=== PATIENT | female | born 1985 | race Caucasian/White ===

== ENCOUNTER 2024-11-20 13:59 | Inpatient (IN) | payer BC ==
[2024-11-20] MEDS ORDERED: Sodium Chloride 0.9% 10 ML Syringe FLUSH PRN (14:21)
[2024-11-20] MEDS: levETIRAcetam 500 MG/5 ML SDV IVPUSH ONE (14:56)
[2024-11-20 15:06] LABS: BASOPHILS ABSOLUTE AUTO 0.1 K/mm3 (0.0-0.2); BASOPHILS PERCENT AUTO 0.3 % (0.0-1.0); EOSINOPHILS ABSOLUTE AUTO 0.0 K/mm3 (0.0-0.4); EOSINOPHILS PERCENT AUTO 0.2 % (0.0-6.0); IMMATURE GRAN ABSOLUTE AUTO 0.08 K/mm3 (0.00-0.05); IMMATURE GRAN PERCENT AUTO 0.4 % (0.0-0.4); LYMPHOCYTES ABSOLUTE AUTO 3.0 K/mm3 (1.0-4.8); LYMPHOCYTES PERCENT AUTO 15.6 % (24.0-44.0); MEAN PLATELET VOLUME 9.9 fl (9.4-12.3); MONOCYTES ABSOLUTE AUTO 1.0 K/mm3 (0.0-0.8); MONOCYTES PERCENT AUTO 5.0 % (0.0-8.0); NEUTROPHILS ABSOLUTE AUTO 15.1 K/mm3 (1.8-7.7); NEUTROPHILS PERCENT AUTO 78.5 % (41.0-71.0); NRBC ABSOLUTE 0.00 (0.00-0.02); NRBC PERCENT 0.0 % (0.0-0.2); PLATELET COUNT,PLT 319 K/mm3 (150-400); RED BLOOD CELL COUNT 5.01 M/mm3 (4.10-5.30); WHITE BLOOD CELL COUNT,WBC 19.16 K/mm3 (3.9-11.3)
[2024-11-20 15:30] LABS: LACTIC ACID 2.0 mmol/L (0.4-2.0)
[2024-11-20 15:31] LABS: A/G RATIO 1.1 (1-2); ALANINE AMINOTRANSFERASE,ALT 19 U/L (14-59); ASPARTATE AMNIOTRANSFERASE,AST 20 U/L (15-37); BILIRUBIN TOTAL 0.4 mg/dL (0.2-1.0); BLOOD UREA NITROGEN,BUN 12 mg/dL (7-18); CARBON DIOXIDE,CO2 28 mEq/L (21-32); CHLORIDE,CL 103 mEq/L (98-107); CREATININE 1.1 mg/dL (0.55-1.02); ESTIMATED GFR 66 mL/min (>60); ETHANOL BLOOD MEDICAL 0.00 gm% (0.00); GLUCOSE RANDOM 117 mg/dL (70-99); POTASSIUM,K 3.7 mEq/L (3.5-5.1); PROTEIN TOTAL,TP 8.0 g/dl (6.4-8.2); SODIUM,NA 142 mEq/L (136-145); TROPONIN I HIGH SENSITIVITY < 4 pg/mL (<=51)
[2024-11-20] MEDS: Magnesium Sulf/Wat 4 GM/50 mL 4 GM in Premix Bag 1 BAG IV ONE (16:19)
[2024-11-20] MEDS ORDERED: LORazepam 2 MG/ML SDV IVPUSH PRN (17:36)
[2024-11-20] MEDS ORDERED: Naloxone 0.4 MG/ML SDV IVPUSH PRN (17:38)
[2024-11-20] MEDS ORDERED: Sennosides/Docusate Sodium 50-8.6 MG Tab PO PRN (17:38)
[2024-11-20 18:54] LABS: APPEARANCE,URINE CLEAR (Clear); GLUCOSE,URINE NEGATIVE (Negative); OCCULT BLOOD,URINE NEGATIVE (Negative)
[2024-11-20 19:03] LABS: BUPRENORPHINE SCREEN,URINE NEGATIVE (CUTOFF=10); METHADONE SCREEN, URINE NEGATIVE (CUTOFF=200); METHAMPHETAMINES SCREEN, URINE NEGATIVE (CUTOFF=500); OXYCODONE SCREEN,URINE NEGATIVE (CUT0FF=100); THC SCREEN,URINE 20 NG/ML PRESUMPTIVE POSITIVE (CUTOFF=50)
[2024-11-20 19:06] LABS: AMPHETAMINES SCREEN, URINE NEGATIVE (CUTOFF=500)
[2024-11-20] MEDS: LORazepam 2 MG/ML SDV IV PRN (20:26)
[2024-11-21 05:44] LABS: BASOPHILS ABSOLUTE AUTO 0.0 K/mm3 (0.0-0.2); BASOPHILS PERCENT AUTO 0.1 % (0.0-1.0); EOSINOPHILS ABSOLUTE AUTO 0.0 K/mm3 (0.0-0.4); EOSINOPHILS PERCENT AUTO 0.0 % (0.0-6.0); IMMATURE GRAN ABSOLUTE AUTO 0.09 K/mm3 (0.00-0.05); IMMATURE GRAN PERCENT AUTO 0.5 % (0.0-0.4); LYMPHOCYTES ABSOLUTE AUTO 1.3 K/mm3 (1.0-4.8); LYMPHOCYTES PERCENT AUTO 7.6 % (24.0-44.0); MEAN PLATELET VOLUME 9.9 fl (9.4-12.3); MONOCYTES ABSOLUTE AUTO 0.7 K/mm3 (0.0-0.8); MONOCYTES PERCENT AUTO 3.9 % (0.0-8.0); NEUTROPHILS ABSOLUTE AUTO 15.1 K/mm3 (1.8-7.7); NEUTROPHILS PERCENT AUTO 87.9 % (41.0-71.0); NRBC ABSOLUTE 0.00 (0.00-0.02); NRBC PERCENT 0.0 % (0.0-0.2); PLATELET COUNT,PLT 306 K/mm3 (150-400); RED BLOOD CELL COUNT 4.32 M/mm3 (4.10-5.30); WHITE BLOOD CELL COUNT,WBC 17.19 K/mm3 (3.9-11.3)
[2024-11-21 06:00] LABS: A/G RATIO 1.0 (1-2); ALANINE AMINOTRANSFERASE,ALT 16.0 U/L (14-59); ASPARTATE AMNIOTRANSFERASE,AST 14.0 U/L (15-37); BILIRUBIN TOTAL 0.6 mg/dL (0.2-1.0); BLOOD UREA NITROGEN,BUN 7.0 mg/dL (7-18); CARBON DIOXIDE,CO2 27.0 mEq/L (21-32); CHLORIDE,CL 100.0 mEq/L (98-107); CREATININE 0.9 mg/dL (0.55-1.02); EST CRCL DRUG DOSING (CG) 70.8 mL/min; ESTIMATED GFR 84.0 mL/min (>60); GLUCOSE RANDOM 129.0 mg/dL (70-99); PHOSPHORUS 3.4 mg/dL (2.6-4.7); POTASSIUM,K 3.9 mEq/L (3.5-5.1); PROTEIN TOTAL,TP 7.1 g/dl (6.4-8.2); SODIUM,NA 135.0 mEq/L (136-145)
[2024-11-21] MEDS ORDERED: Ondansetron 4 MG/2 ML SDV IVPUSH PRN (10:20)
[2024-11-21] MEDS: Sodium Chloride 0.9% 10 ML Syringe FLUSH SCH (12:06)
[2024-11-21] MEDS: Gadobenate Dimeglumine 529 MG/ML 15 ML SDV IVPUSH ONE (12:06)
[2024-11-21] MEDS: Ondansetron 4 MG Tab.DIS PO PRN (12:52)
[2024-11-22 09:46] LABS: KEPPRA 27.0 ug/mL (10.0-40.0)
== END 2024-11-21 14:59 | disposition home or self-care (01) | DRG 53 ==
LOC: JD.ED 13:59 → JD.MS 16:09
PROVIDERS: ADMIT Student in an Organized Health Care Education/Training Program; ATTEND Student in an Organized Health Care Education/Training Program
DX: R56.9 Unspecified convulsions (principal); R94.31 Abnormal electrocardiogram [ECG] [EKG]; J98.11 Atelectasis; D72.829 Elevated white blood cell count, unspecified; E83.42 Hypomagnesemia; Z88.2 Allergy status to sulfonamides; Z79.899 Other long term (current) drug therapy; Z98.890 Other specified postprocedural states
CPT/HCPCS: 36415; 70450; 70450-26; 70553; 70553-26; 71045; 71045-26; 80053; 80177; 80306; 80307; 81003; 83605; 83690; 83735; 84100; 84484; 84703; 85025; 86140; 87040; 93005; 93010; 94761; 99285; A9270-GY; A9577; J0692; J1953; J2060; J3475; J3480; J7030

== ENCOUNTER 2024-11-23 10:41 | Emergency (ER) | payer BC ==
[2024-11-23] MEDS ORDERED: Sodium Chloride 0.9% 10 ML Syringe FLUSH PRN (11:12)
[2024-11-23 11:42] LABS: BASOPHILS ABSOLUTE AUTO 0.0 K/mm3 (0.0-0.2); BASOPHILS PERCENT AUTO 0.3 % (0.0-1.0); EOSINOPHILS ABSOLUTE AUTO 0.0 K/mm3 (0.0-0.4); EOSINOPHILS PERCENT AUTO 0.0 % (0.0-6.0); IMMATURE GRAN ABSOLUTE AUTO 0.04 K/mm3 (0.00-0.05); IMMATURE GRAN PERCENT AUTO 0.3 % (0.0-0.4); LYMPHOCYTES ABSOLUTE AUTO 1.6 K/mm3 (1.0-4.8); LYMPHOCYTES PERCENT AUTO 13.8 % (24.0-44.0); MEAN PLATELET VOLUME 9.8 fl (9.4-12.3); MONOCYTES ABSOLUTE AUTO 0.8 K/mm3 (0.0-0.8); MONOCYTES PERCENT AUTO 6.7 % (0.0-8.0); NEUTROPHILS ABSOLUTE AUTO 9.1 K/mm3 (1.8-7.7); NEUTROPHILS PERCENT AUTO 78.9 % (41.0-71.0); NRBC ABSOLUTE 0.00 (0.00-0.02); NRBC PERCENT 0.0 % (0.0-0.2); PLATELET COUNT,PLT 288 K/mm3 (150-400); RED BLOOD CELL COUNT 4.45 M/mm3 (4.10-5.30); WHITE BLOOD CELL COUNT,WBC 11.51 K/mm3 (3.9-11.3)
[2024-11-23 12:05] LABS: A/G RATIO 1.0 (1-2); ALANINE AMINOTRANSFERASE,ALT 16 U/L (14-59); ASPARTATE AMNIOTRANSFERASE,AST 14 U/L (15-37); BILIRUBIN TOTAL 0.4 mg/dL (0.2-1.0); BLOOD UREA NITROGEN,BUN 7 mg/dL (7-18); CARBON DIOXIDE,CO2 26 mEq/L (21-32); CHLORIDE,CL 100 mEq/L (98-107); CREATININE 0.7 mg/dL (0.55-1.02); EST CRCL DRUG DOSING (CG) 91.02 mL/min; ESTIMATED GFR 114 mL/min (>60); GLUCOSE RANDOM 99 mg/dL (70-99); POTASSIUM,K 3.3 mEq/L (3.5-5.1); PROTEIN TOTAL,TP 7.6 g/dl (6.4-8.2); SODIUM,NA 139 mEq/L (136-145)
[2024-11-23 12:12] LABS: TROPONIN I HIGH SENSITIVITY < 4 pg/mL (<=51)
== END 2024-11-23 12:40 | disposition home or self-care (01) ==
LOC: JD.ED 10:41
DX: R53.1 Weakness (principal); R11.0 Nausea; Z88.2 Allergy status to sulfonamides; Z79.899 Other long term (current) drug therapy
CPT/HCPCS: 36415; 80053; 83735; 84484; 85025; 93005; 96361; 96374; 99285; J2765; J7030; 99283